=== PATIENT | male | born 1950 | race Caucasian/White ===

== ENCOUNTER 2018-07-16 16:21 | Emergency (ER) | payer OTHER, MEDICARE ==
[~2018-07-16] VITALS: Ht 175.3 cm; Wt 63.6 kg
[2018-07-16 19:45] VITALS: BP 161/99
== END 2018-07-16 20:09 | disposition short-term general hospital (02) ==
LOC: EMS 16:22
DX: S02.40FA Zygomatic fracture, left side, initial encounter for closed fracture (principal); S02.32XA Fracture of orbital floor, left side, initial encounter for closed fracture; F17.210 Nicotine dependence, cigarettes, uncomplicated; Z88.0 Allergy status to penicillin; Y04.0XXA Assault by unarmed brawl or fight, initial encounter; Y93.89 Activity, other specified; Y92.89 Other specified places as the place of occurrence of the external cause; Y99.8 Other external cause status
CPT/HCPCS: 70450; 70486; 99285